=== PATIENT | male | born 1970 | race Caucasian/White ===

== ENCOUNTER 2019-02-22 19:21 | Emergency (ER) | payer SELFPAY ==
[~2019-02-22] VITALS: Ht 154.9 cm; Wt 65.8 kg
[2019-02-22 19:42] VITALS: Ht 154.9 cm; Wt 65.8 kg
[2019-02-23 00:28] VITALS: BP 122/69
== END 2019-02-23 00:28 | disposition home or self-care (01) ==
LOC: ED 19:21
DX: S61.210A Laceration without foreign body of right index finger without damage to nail, initial encounter (principal); S61.212A Laceration without foreign body of right middle finger without damage to nail, initial encounter; Z88.0 Allergy status to penicillin; W26.8XXA Contact with other sharp object(s), not elsewhere classified, initial encounter; Y93.89 Activity, other specified; Y92.89 Other specified places as the place of occurrence of the external cause; Y99.8 Other external cause status
CPT/HCPCS: 90715; J2001

== ENCOUNTER 2019-02-24 16:28 | Emergency (ER) | payer MEDICAID ==
[~2019-02-24] VITALS: Ht 154.9 cm; Wt 66.0 kg
[2019-02-24 16:33] VITALS: BP 107/63; Ht 154.9 cm; Wt 66.0 kg
== END 2019-02-24 19:02 | disposition home or self-care (01) ==
LOC: ED 16:28
DX: S61.210D Laceration without foreign body of right index finger without damage to nail, subsequent encounter (principal); S61.212D Laceration without foreign body of right middle finger without damage to nail, subsequent encounter; Z88.0 Allergy status to penicillin; X58.XXXD Exposure to other specified factors, subsequent encounter

== ENCOUNTER 2019-03-03 15:57 | Emergency (ER) | payer MEDICAID ==
[~2019-03-03] VITALS: Ht 162.6 cm; Wt 66.2 kg
[2019-03-03 16:18] VITALS: Ht 162.6 cm; Wt 66.2 kg
[2019-03-03 18:50] VITALS: BP 120/77
== END 2019-03-03 18:50 | disposition home or self-care (01) ==
LOC: ED 15:57
DX: S61.210D Laceration without foreign body of right index finger without damage to nail, subsequent encounter (principal); S61.212D Laceration without foreign body of right middle finger without damage to nail, subsequent encounter; Z88.0 Allergy status to penicillin; X58.XXXD Exposure to other specified factors, subsequent encounter